=== PATIENT | male | born 1965 | race Caucasian/White ===

== ENCOUNTER 2022-08-03 04:26 | Day surgery (SDC) | payer OTHER ==
[2022-07-28 10:42] VITALS: BMI 34.4
[2022-08-03 12:32] VITALS: TEMP 97.5
[2022-08-03 12:45] VITALS: RESP 18
[2022-08-03 12:55] VITALS: BP 119/68; PULSE 73
== END 2022-08-03 13:07 | disposition home or self-care (01) ==
LOC: JASU-ENDO 04:26
PROVIDERS: ATTEND Internal Medicine Gastroenterology
PROC: 0DB78ZX Excision of Stomach, Pylorus, Via Natural or Artificial Opening Endoscopic, Diagnostic (ICD-10-PCS; principal; 2022-08-03 10:15)
DX: K29.70 Gastritis, unspecified, without bleeding (principal); B96.81 Helicobacter pylori [H. pylori] as the cause of diseases classified elsewhere; K31.89 Other diseases of stomach and duodenum; I10 Essential (primary) hypertension; E11.9 Type 2 diabetes mellitus without complications
CPT/HCPCS: 82962; 88305-TC; 88342-TC

== ENCOUNTER 2022-09-30 04:06 | Day surgery (SDC) | payer OTHER ==
[2022-09-29 12:10] VITALS: BMI 34.4
[2022-09-30 12:35] VITALS: TEMP 98.3
[2022-09-30 13:09] VITALS: BP 123/72; PULSE 66; RESP 18
== END 2022-09-30 13:08 | disposition home or self-care (01) ==
LOC: JASU-ENDO 04:06
PROVIDERS: ATTEND Internal Medicine Gastroenterology
PROC: 0DBP8ZX Excision of Rectum, Via Natural or Artificial Opening Endoscopic, Diagnostic (ICD-10-PCS; principal; 2022-09-30 11:30)
DX: Z12.11 Encounter for screening for malignant neoplasm of colon (principal); D12.8 Benign neoplasm of rectum; K64.8 Other hemorrhoids; I10 Essential (primary) hypertension; E11.9 Type 2 diabetes mellitus without complications; Z79.84 Long term (current) use of oral hypoglycemic drugs
CPT/HCPCS: 82962; 88305-TC

== ENCOUNTER 2023-06-14 12:28 | Inpatient (IN) | payer OTHER ==
[2023-06-14] MEDS ORDERED: MAG HYDROX/AL HYDROX/SIMETH 30 ML UNIT-DOSE CUP PO ONE (13:12)
[2023-06-14] MEDS ORDERED: ACETAMINOPHEN 1000 MG/100 ML BAG IVPB ONE (13:12)
[2023-06-14] MEDS ORDERED: FAMOTIDINE 20 MG/50 ML IVPB 20 MG/50 ML MG IVPB ONE ×2 (13:12→14:55)
[2023-06-14] MEDS ORDERED: LACTATED RINGERS SOLUTION 1000 ML INFUS.BAG IV ONE (13:12)
[2023-06-14 14:52] LABS: VENOUS BASE EXCESS 0.9 mmol/L (-2-2); VENOUS O2 SATURATION 62.2 % (70-80); VENOUS PCO2 36.2 mmHg (38-52); VENOUS PH 7.447 (7.310-7.410)
[2023-06-14] MEDS ORDERED: PIPERACILLIN/TAZOB 3.375 GM 3.375 GM in DEXTROSE 5%-WATER - 50 ML IVPB ONE (14:53)
[2023-06-14] MEDS ORDERED: VANCOMYCIN 1,000 MG in DEXTROSE 5%-WATER - 250 ML IVPB ONE (14:53)
[2023-06-14] MEDS ORDERED: ACETAMINOPHEN INJECTION 100 ML IVPB ONE (14:54)
[2023-06-14] MEDS ORDERED: VANCOMYCIN 1 GRAM (PRE-DOCKED) 1,000 MG/250 ML BAG IVPB ONE (14:55)
[2023-06-14] MEDS ORDERED: MAG HYDROX/AL HYDROX/SIMETH 30 ML UNIT-DOSE CUP ONE (14:55)
[2023-06-14 14:58] LABS: HEMATOCRIT 48.1 % (35.4-49); MCH 25.9 pg (25.7-33.7); MCHC 33.3 g/dl (32.0-35.9); MEAN CELL VOLUME 77.8 fl (80-96); MEAN PLT VOLUME 8.7 fl (7.5-11.1); PLATELET COUNT 194 10^3/uL (134-434); RBC 6.19 M/mm3 (4.00-5.60); RDW 14.5 % (11.9-15.9); WHITE BLOOD COUNT 21.7 K/mm3 (4.0-10.0)
[2023-06-14 15:00] LABS: EPI CELLS 19 /uL (0-25.1); HYALINE CASTS 7 /uL (0-3.1); URINE APPEARANCE TURBID; URINE BILIRUBIN 2+ (NEGATIVE); URINE COLOR ORANGE; URINE GLUCOSE (UA) NEGATIVE (NEGATIVE); URINE KETONE NEGATIVE (NEGATIVE); URINE LEUK ESTERASE 2+ (NEGATIVE); URINE NITRITE POSITIVE (NEGATIVE); URINE PROTEIN 2+ (NEGATIVE); URINE WBC 4563 /uL (0-25.8)
[2023-06-14 15:04] LABS: URINE BACTERIA 541.7 /uL (0-1359); URINE RBC 904.9 /uL (0-23.9); YEAST NEGATIVE (NEGATIVE)
[2023-06-14 15:06] LABS: INR 1.86 (0.83-1.09); PROTHROMBIN TIME (PATIENT) 21.5 SEC (9.7-13.0)
[2023-06-14 15:08] LABS: ACTIVATED PTT 33.7 SECONDS (25.2-36.5)
[2023-06-14 15:12] LABS: POTASSIUM 3.5 mmol/L (3.5-5.1)
[2023-06-14 15:14] LABS: CALCIUM 9.4 mg/dL (8.5-10.1)
[2023-06-14 15:15] LABS: ALBUMIN 3.9 g/dl (3.4-5.0); BLOOD UREA NITROGEN 23.1 mg/dL (7-18); MAGNESIUM 1.9 mg/dL (1.8-2.4)
[2023-06-14 15:19] LABS: BILIRUBIN,TOTAL 1.6 mg/dL (0.2-1); CREATININE 1.7 mg/dL (0.55-1.3); TOT PROT 7.6 g/dl (6.4-8.2)
[2023-06-14 15:40] LABS: ANISOCYTOSIS 3+; MACROCYTOSIS 0
[2023-06-14] MEDS ORDERED: PIPERACILLIN/TAZOB 3.375 GM 3.375 GM/50 ML BAG IVPB ONE (15:41)
[2023-06-14] MEDS: SODIUM CHLORIDE 0.45%/POT 20 MEQ/1,000 ML INFUS.BAG IV SCH (20:35)
[2023-06-14] MEDS: PIPERACILLIN/TAZOB 3.375 GM 3.375 GM in DEXTROSE 5%-WATER - 50 ML IVPB SCH (20:37)
[2023-06-14] MEDS: HEPARIN NA (PORCINE) 5,000 UNITS/ML 1ML VIAL SQ SCH (22:58)
[2023-06-14] MEDS: INSULIN ASPART SLIDING SCALE (NOVOLOG) 1 VIAL SQ SCH (23:02)
[2023-06-15] MEDS: PIPERACILLIN/TAZOB 3.375 GM 3.375 GM in DEXTROSE 5%-WATER - 50 ML IVPB SCH ×5 (01:39→17:34)
[2023-06-15] MEDS: INSULIN ASPART SLIDING SCALE (NOVOLOG) 1 VIAL SQ SCH ×4 (06:23→21:31)
[2023-06-15] MEDS: SODIUM CHLORIDE 0.45%/POT 20 MEQ/1,000 ML INFUS.BAG IV SCH ×2 (08:09→17:34)
[2023-06-15] MEDS: TAMSULOSIN HCL 0.4 MG CAP PO SCH (08:59)
[2023-06-15] MEDS: HEPARIN NA (PORCINE) 5,000 UNITS/ML 1ML VIAL SQ SCH ×2 (09:31→21:24)
[2023-06-15] MEDS ORDERED: SODIUM CHLORIDE 500 ML IV STA (09:58)
[2023-06-15 10:09] LABS: BASO % 0.2 % (0-2.0); EOS % 0.2 % (0-4.5); HEMATOCRIT 39.4 % (35.4-49); HEMOGLOBIN 13.6 GM/dL (11.7-16.9); LYMPH % 8.6 % (8-40); MCH 26.6 pg (25.7-33.7); MCHC 34.6 g/dl (32.0-35.9); MEAN PLT VOLUME 8.6 fl (7.5-11.1); MONO % 7.9 % (3.8-10.2); NEUT % 83.1 % (42.8-82.8); PLATELET COUNT 138 10^3/uL (134-434); RBC 5.12 M/mm3 (4.00-5.60); RDW 14.6 % (11.9-15.9); WHITE BLOOD COUNT 14.5 K/mm3 (4.0-10.0)
[2023-06-15 10:21] LABS: POTASSIUM 3.3 mmol/L (3.5-5.1)
[2023-06-15 10:24] LABS: CALCIUM 8.2 mg/dL (8.5-10.1)
[2023-06-15 10:25] LABS: BLOOD UREA NITROGEN 20.5 mg/dL (7-18)
[2023-06-15 10:26] LABS: MAGNESIUM 1.8 mg/dL (1.8-2.4)
[2023-06-15 10:28] LABS: CREATININE 1.4 mg/dL (0.55-1.3)
[2023-06-15 10:29] LABS: TOT PROT 6.1 g/dl (6.4-8.2)
[2023-06-15 10:30] LABS: BILIRUBIN,TOTAL 1.3 mg/dL (0.2-1)
[2023-06-15 10:31] LABS: ALBUMIN 2.9 g/dl (3.4-5.0)
[2023-06-15] MEDS ORDERED: POTASSIUM CHLORIDE ORAL LIQUID 20 MEQ/15 ML PO ONE (12:30)
[2023-06-15] MEDS ORDERED: VANCOMYCIN/WATER FOR INJ (PEG) 1,000 MG/200 ML BAG IVPB ONE (13:00)
[2023-06-15 16:16] VITALS: BMI 29.4
[2023-06-15] MEDS: DOCUSATE SODIUM 100 MG CAPSULE (FP) PO SCH (21:24)
[2023-06-16] MEDS: PIPERACILLIN/TAZOB 3.375 GM 3.375 GM in DEXTROSE 5%-WATER - 50 ML IVPB SCH ×4 (03:12→10:41)
[2023-06-16] MEDS: INSULIN ASPART SLIDING SCALE (NOVOLOG) 1 VIAL SQ SCH ×4 (06:12→21:21)
[2023-06-16 10:22] LABS: BASO % 0.3 % (0-2.0); EOS % 1.6 % (0-4.5); HEMATOCRIT 41.9 % (35.4-49); HEMOGLOBIN 14.4 GM/dL (11.7-16.9); LYMPH % 12.4 % (8-40); MCH 26.6 pg (25.7-33.7); MCHC 34.4 g/dl (32.0-35.9); MEAN CELL VOLUME 77.2 fl (80-96); MEAN PLT VOLUME 8.7 fl (7.5-11.1); MONO % 10.2 % (3.8-10.2); NEUT % 75.5 % (42.8-82.8); PLATELET COUNT 195 10^3/uL (134-434); RBC 5.43 M/mm3 (4.00-5.60); RDW 14.7 % (11.9-15.9); WHITE BLOOD COUNT 10.4 K/mm3 (4.0-10.0)
[2023-06-16] MEDS: POLYETHYLENE GLYCOL (HEALTHYLAX) 3350 17 GM PACKET PO SCH (10:41)
[2023-06-16] MEDS: HEPARIN NA (PORCINE) 5,000 UNITS/ML 1ML VIAL SQ SCH ×2 (10:41→21:15)
[2023-06-16] MEDS: TAMSULOSIN HCL 0.4 MG CAP PO SCH (10:41)
[2023-06-16 10:48] LABS: ALBUMIN 2.9 g/dl (3.4-5.0); BLOOD UREA NITROGEN 15.1 mg/dL (7-18); CALCIUM 8.7 mg/dL (8.5-10.1)
[2023-06-16 10:49] LABS: MAGNESIUM 2.3 mg/dL (1.8-2.4)
[2023-06-16 10:53] LABS: BILIRUBIN,TOTAL 0.8 mg/dL (0.2-1); TOT PROT 6.5 g/dl (6.4-8.2)
[2023-06-16] MEDS: ERTAPENEM SODIUM 1 GM in SODIUM CHLORIDE 50 ML IVPB SCH (17:10)
[2023-06-16] MEDS ORDERED: TRIMETHOBENZAMIDE HCL 200MG/2ML INJ IM ONE (18:43)
[2023-06-16 20:23] VITALS: RESP 18
[2023-06-16] MEDS: DOCUSATE SODIUM 100 MG CAPSULE (FP) PO SCH (21:15)
[2023-06-17] MEDS: INSULIN ASPART SLIDING SCALE (NOVOLOG) 1 VIAL SQ SCH ×3 (06:22→16:33)
[2023-06-17] MEDS: TAMSULOSIN HCL 0.4 MG CAP PO SCH (08:58)
[2023-06-17] MEDS: ERTAPENEM SODIUM 1 GM in SODIUM CHLORIDE 50 ML IVPB SCH (10:38)
[2023-06-17] MEDS: POLYETHYLENE GLYCOL (HEALTHYLAX) 3350 17 GM PACKET PO SCH (10:38)
[2023-06-17] MEDS: HEPARIN NA (PORCINE) 5,000 UNITS/ML 1ML VIAL SQ SCH (10:39)
[2023-06-17 14:27] VITALS: BP 117/77; PULSE 83; TEMP 99.2
== END 2023-06-17 16:54 | disposition home or self-care (01) | DRG 720 ==
LOC: JER 12:28 → JERBED 14:55 → J5S 18:08
PROVIDERS: ADMIT Family Medicine; ATTEND Family Medicine
DX: A41.9 Sepsis, unspecified organism (principal); J44.9 Chronic obstructive pulmonary disease, unspecified; I10 Essential (primary) hypertension; E11.9 Type 2 diabetes mellitus without complications; Z79.84 Long term (current) use of oral hypoglycemic drugs; N17.9 Acute kidney failure, unspecified; N39.0 Urinary tract infection, site not specified; N40.1 Benign prostatic hyperplasia with lower urinary tract symptoms; R33.8 Other retention of urine; E87.6 Hypokalemia; N20.0 Calculus of kidney
CPT/HCPCS: 0241U-QW; 36415; 71045-TC-FY; 74176-TC; 76775-TC; 80053; 81003; 82803; 82962; 83605; 83735; 85025; 85610; 85730; 87040; 87086; 87186; 93005; 93010; 97116-GP; 97161-GP; 99285-25; J1644; J3480

== ENCOUNTER 2024-05-25 14:00 | Emergency (ER) | payer OTHER ==
[2024-05-25 14:12] VITALS: BP 121/81; PULSE 106; RESP 18; TEMP 98.8; BMI 31.3
[2024-05-25 15:10] LABS: HEMATOCRIT 55.2 % (35.4-49); HEMOGLOBIN 18.4 GM/dL (11.7-16.9); MCH 26.1 pg (25.7-33.7); MCHC 33.3 g/dl (32.0-35.9); MEAN CELL VOLUME 78.4 fl (80-96); MEAN PLT VOLUME 8.2 fl (7.5-11.1); PLATELET COUNT 215 10^3/uL (134-434); WHITE BLOOD COUNT 12.5 K/mm3 (4.0-10.0)
[2024-05-25 15:11] LABS: RBC 7.04 M/mm3 (4.00-5.60)
[2024-05-25] MEDS ORDERED: ONDANSETRON 4 MG/2 ML VIAL ONE (15:16)
[2024-05-25] MEDS: SODIUM CHLORIDE 0.9% 500 ML INFUS.BAG IV ONE (15:22)
[2024-05-25] MEDS: ONDANSETRON 4 MG/2 ML VIAL IVPUSH ONE (15:22)
[2024-05-25] MEDS ORDERED: ACETAMINOPHEN INJECTION 100 ML ONE (15:32)
[2024-05-25 15:44] LABS: POTASSIUM 4.3 mmol/L (3.5-5.1)
[2024-05-25 15:47] LABS: ALBUMIN 4.3 g/dl (3.4-5.0); BLOOD UREA NITROGEN 22.8 mg/dL (7-18); CALCIUM 9.8 mg/dL (8.5-10.1)
[2024-05-25 15:50] LABS: CREATININE 1.3 mg/dL (0.55-1.3)
[2024-05-25 15:52] LABS: BILIRUBIN,TOTAL 0.9 mg/dL (0.2-1)
[2024-05-25] MEDS: ACETAMINOPHEN 1000 MG/100 ML BAG IVPB ONE (15:55)
[2024-05-25 16:39] LABS: HIV INTERPRETATION NEGATIVE (NEGATIVE)
[2024-05-25 16:48] LABS: ANISOCYTOSIS 1+; MACROCYTOSIS 0
[2024-05-25 16:49] LABS: EPI CELLS 9 /uL (0-25.1); HYALINE CASTS 1 /uL (0-3.1); URINE APPEARANCE CLEAR; URINE BACTERIA 1 /uL (0-1359); URINE BILIRUBIN NEGATIVE (NEGATIVE); URINE COLOR DK YELLOW; URINE GLUCOSE (UA) NEGATIVE (NEGATIVE); URINE KETONE TRACE (NEGATIVE); URINE LEUK ESTERASE NEGATIVE (NEGATIVE); URINE NITRITE NEGATIVE (NEGATIVE); URINE PROTEIN 1+ (NEGATIVE); URINE RBC 52 /uL (0-23.9); URINE UROBILINOGEN 0.2 mg/dL (0.2-1.0); URINE WBC 11 /uL (0-25.8)
== END 2024-05-25 17:28 | disposition home or self-care (01) ==
LOC: JER 14:00
PROC: 3E033NZ Introduction of Analgesics, Hypnotics, Sedatives into Peripheral Vein, Percutaneous Approach (ICD-10-PCS; principal; 2024-05-25)
PROC: 3E033GC Introduction of Other Therapeutic Substance into Peripheral Vein, Percutaneous Approach (ICD-10-PCS; 2024-05-25)
DX: A08.4 Viral intestinal infection, unspecified (principal); R11.10 Vomiting, unspecified; R53.83 Other fatigue; M17.11 Unilateral primary osteoarthritis, right knee; M25.561 Pain in right knee; M25.562 Pain in left knee; Z20.822 Contact with and (suspected) exposure to COVID-19
CPT/HCPCS: 0241U-QW; 36415; 73562-TC-RT-FY; 80053; 81003; 85025; 86803; 87389; 99284-25; J0131